=== PATIENT | female | born 1955 | race Caucasian/White ===

== ENCOUNTER 2023-01-17 13:19 | Emergency (ER) | payer MEDICARE, BC, SELFPAY ==
[2023-01-17 13:37] VITALS: BP 170/81; PULSE 75; RESP 16; TEMP 36.6; O2SAT 95; BMI 32.9
--- NOTE | 2023-01-17 20:05 | ED.GENADULT ---
HPI - General Adult General Chief complaint: Hypertension Stated complaint: Tight chest, BP 191/86 PCP referred to ER Time Seen by Provider: 01/17/23 15:26 History of Present Illness HPI narrative: This patient presented to the ER on 01/17/2023. She left the lobby without being seen by a medical provider. She did have an EKG obtained at triage. I reviewed this EKG and it shows sinus bradycardia without any clear ischemia. She left from the lobby a medical provider performed a history or physical exam. Related Data Home Medications Medication Instructions Recorded Confirmed albuterol 90 mcg/actuation aerosol mcg inhalation 01/17/23 inhaler aspirin 81 mg tablet,delayed 81 mg PO DAILY 01/17/23 01/17/23 release (Adult Aspirin Regimen) diphenhydramine HCl 25 mg capsule 25 mg PO QHS 01/17/23 01/17/23 (Benadryl) docusate sodium 100 mg capsule 100 mg PO BID 01/17/23 01/17/23 (Colace) famotidine 20 mg tablet 20 mg PO BID 01/17/23 01/17/23 furosemide 20 mg tablet 40 mg PO QAM 01/17/23 01/17/23 hydromorphone 2 mg tablet 2 - 4 mg PO Q6H PRN pain 01/17/23 01/17/23 lidocaine 5 % topical patch patch topical 01/17/23 (Lidoderm) lisinopril 20 mg tablet 20 mg PO BID 01/17/23 01/17/23 meloxicam 15 mg tablet 15 mg PO DAILY 01/17/23 01/17/23 metoprolol succinate 50 mg 50 mg PO BID 01/17/23 01/17/23 tablet,extended release 24 hr rizatriptan 10 mg tablet PO 01/17/23 rosuvastatin 40 mg tablet 40 mg PO DAILY 01/17/23 01/17/23 sennosides 8.6 mg-docusate sodium 1 - 2 tab PO BID 01/17/23 01/17/23 50 mg tablet (Stimulant Laxative Plus) sulindac 200 mg tablet 200 mg PO BID 01/17/23 01/17/23 tizanidine 4 mg tablet 4 mg PO QPM PRN muscle spasm 01/17/23 01/17/23 Allergies Allergy/AdvReac Type Severity Reaction Status Date / Time Iodinated Contrast Media Allergy Severe Anaphylaxis Verified 01/17/23 13:32 amantadine Allergy Intermediate swelling Verified 01/17/23 13:32 amoxicillin Allergy Intermediate Rash Verified 01/17/23 13:32 baclofen Allergy Intermediate Verified 01/17/23 13:32 clindamycin Allergy Intermediate Dizziness Verified 01/17/23 13:32 gabapentin Allergy Intermediate Hives Verified 01/17/23 13:32 lansoprazole Allergy Intermediate Verified 01/17/23 13:32 morphine Allergy Intermediate Rash Verified 01/17/23 13:32 povidone-iodine Allergy Intermediate Rash Verified 01/17/23 13:32 [From Betadine] codine Allergy Intermediate Rash Uncoded 01/17/23 13:32 Exam Const: Vital Signs, click to edit/add: Vital Signs - 24 hr 01/17/23 13:37 Temperature 97.9 F Pulse Rate [Right Pulse Oximeter] 75 Respiratory Rate 16 Blood Pressure [Ri ght Upper Arm] 170/81 H Pulse Oximetry 95 Oxygen Delivery Me thod Room Air Course Vital Signs Vital signs: Initial Vital Signs Temperature 97.9 F 01/17/23 13:37 Temperature Source Temporal Artery Scan 01/17/23 13:37 Pulse Rate 75 01/17/23 13:37 Pulse Rhythm Regular 01/17/23 13:37 Respiratory Rate 16 01/17/23 13:37 Blood Pressure 170/81 H 01/17/23 13:37 Blood Pressure Mean 110 H 01/17/23 13:37 Blood Pressure Position Sitting 01/17/23 13:37 Pulse Oximetry 95 01/17/23 13:37 Oxygen Delivery Method Room Air 01/17/23 13:37 Vital Signs Temperature 97.9 F 01/17/23 13:37 Pulse Rate 75 01/17/23 13:37 Respiratory Rate 16 01/17/23 13:37 Blood Pressure 170/81 H 01/17/23 13:37 Pulse Oximetry 95 01/17/23 13:37 Oxygen Delivery Method Room Air 01/17/23 13:37 Temperature 97.9 F 01/17/23 13:37 Pulse Rate 75 01/17/23 13:37 Respiratory Rate 16 01/17/23 13:37 Blood Pressure 170/81 H 01/17/23 13:37 Pulse Oximetry 95 01/17/23 13:37 Oxygen Delivery Method Room Air 01/17/23 13:37 Medical Decision Making MDM Narrative Medical decision making narrative: This patient left the being seen ECG Data Attestation: I personally reviewed and interpreted this ECG as follows: Interpretation: Sinus bradycardia. Rate 57 AR 158 QRS axis : Normal axis. No pathologic Q-waves. ST segment/T wave: Nonspecific T-wave flattening. No ST segment elevation or depression. QTc: 406 Discharge Plan Discharge Prescriptions: No Action aspirin [Adult Aspirin Regimen] 81 mg tablet,delayed release (DR/EC) 81 mg PO DAILY diphenhydramine HCl [Benadryl] 25 mg capsule 25 mg PO QHS docusate sodium [Colace] 100 mg capsule 100 mg PO BID tizanidine 4 mg tablet 4 mg PO QPM PRN (Reason: muscle spasm) metoprolol succinate 50 mg tablet extended release 24 hr 50 mg PO BID meloxicam 15 mg tablet 15 mg PO DAILY lisinopril 20 mg tablet 20 mg PO BID sennosides-docusate sodium [Stimulant Laxative Plus] 8.6-50 mg tablet 1 - 2 tab PO BID hydromorphone 2 mg tablet 2 - 4 mg PO Q6H PRN (Reason: pain) famotidine 20 mg tablet 20 mg PO BID furosemide 20 mg tablet 40 mg PO QAM sulindac 200 mg tablet 200 mg PO BID rosuvastatin 40 mg tablet 40 mg PO DAILY albuterol 90 mcg/actuation aerosol inhalation rizatriptan 10 mg tablet PO lidocaine [Lidoderm] 5 % adhesive patch,medicated topical Follow Up/Referrals: Bina Huitron MD [Primary Care Provider] -
== END 2023-01-17 15:26 | disposition left against medical advice (07) ==
PROVIDERS: Emergency Provider Emergency Medicine; PCP Family Medicine
DX: Z53.21 Procedure and treatment not carried out due to patient leaving prior to being seen by health care provider (principal)
CPT/HCPCS: 99281

== ENCOUNTER 2024-10-21 20:10 | Outpatient (CLI) | payer MEDICARE, BC, SELFPAY | END 2024-10-21 20:11 | disposition home or self-care (01) | LOC: SLEEP 20:12 | PROVIDERS: PCP Family Medicine; Visit Provider Internal Medicine | DX: G47.33 Obstructive sleep apnea (adult) (pediatric) (principal); R09.02 Hypoxemia; G47.31 Primary central sleep apnea | CPT/HCPCS: 95811 ==